=== PATIENT | male | born 1980 | race Caucasian/White ===

== ENCOUNTER 2016-08-04 14:27 | Inpatient (IN) | payer SELFPAY ==
[~2016-08-04] VITALS: Ht 177.8 cm; Wt 74.8 kg
[2016-08-04] MEDS ORDERED: ASPIRIN 325 MG TABLET PO ONE (16:30)
[2016-08-04] MEDS ORDERED: ENALAPRILAT INJ (1.25 MG/ML) 1.25 MG/ML VIAL IV PRN (16:30)
[2016-08-04 16:51] LABS: BASOPHILS # (AUTO) 0.1 /CMM (0.0-0.2); BASOPHILS % (AUTO) 0.6 % (0.0-2.0); EOSINOPHILS # (AUTO) 0.1 /CMM (0.0-0.7); HEMATOCRIT 49 % (39-51); HEMOGLOBIN 16.6 g/dL (13.5-17.5); LYMPHOCYTES # (AUTO) 1.6 /CMM (0.8-4.8); LYMPHOCYTES % (AUTO) 18.5 % (20.0-44.0); MEAN CORPUSCULAR HEMOGLOBIN 30 PG (26.0-33.0); MEAN CORPUSCULAR HGB CONC 34 g/dl (31.0-36.0); MEAN CORPUSCULAR VOLUME 89 fL (80-96); MONOCYTES # (AUTO) 0.7 /CMM (0.1-1.30); MONOCYTES % (AUTO) 7.8 % (2.0-12.0); NEUTROPHILS % (AUTO) 72.1 % (43.0-81.0); PLATELET COUNT (AUTO) 290 /CMM (150-450); RDW COEFFICIENT OF VARIATION 13.9 (11.5-15.0); RED BLOOD CELL COUNT(AUTO) 5.51 MIL/uL (4.5-6.0); WHITE BLOOD COUNT (AUTO) 8.5 K/uL (4.3-11.0)
[2016-08-04 17:02] LABS: CALCIUM, SERUM 9.4 mg/dL (8.5-10.1); CARBON DIOXIDE 25 mmol/L (21-32); CHLORIDE 101 mmol/L (98-107); CREATININE 1.3 mg/dL (0.6-1.3); GLUCOSE 121 mg/dL (74-106); POTASSIUM 3.9 mmol/L (3.5-5.1); SODIUM SERUM 138 mmol/L (136-145); UREA NITROGEN, BLOOD 13 mg/dL (7-18)
[2016-08-04] MEDS ORDERED: ASPIRIN 325 MG TABLET ONE (17:04)
[2016-08-04] MEDS ORDERED: ENALAPRILAT DIHYD. (2.5MG/ML) 1.25 MG/ML VIAL IV ONE (17:04)
[2016-08-04 17:06] LABS: INR 1.11 (0.87-1.13); PROTHROMBIN TIME 11.6 SECS (9.5-12.7)
[2016-08-04 17:09] LABS: TROPONIN I < 0.017 ng/mL (0.00-0.056)
[2016-08-04 17:14] LABS: ALANINE AMINOTRANSFERASE 30 U/L (12-78); ALBUMIN 4.2 g/dL (3.4-5.0); ALKALINE PHOSPHATASE 129 U/L (46-116); ASPARTATE AMINOTRANSFERASE 31 U/L (15-37); B-TYPE NATRIURETIC PEPTIDE 3927 PG/ML (0-125); BILIRUBIN,DIRECT 0.5 mg/dL (0.0-0.2); BILIRUBIN,TOTAL 1.7 mg/dL (0.2-1.0); TOTAL PROTEIN, SERUM 7.9 g/dL (6.4-8.2)
[2016-08-04] MEDS ORDERED: ASPI1TAB9 PO (17:22)
[2016-08-04] MEDS ORDERED: LABETALOL 20 MG/4 ML VIAL ONE (18:22)
[2016-08-04] MEDS: LABETALOL HCL IV 100MG VIAL IV PRN (18:26)
[2016-08-04 20:00] VITALS: BP 143/109
[2016-08-04] MEDS ORDERED: MAG HYDROX/AL HYDROX/SIMETH 30 ML UDC PO PRN (20:00)
[2016-08-04] MEDS ORDERED: ONDANSETRON HCL/PF 4 MG/2 ML VIAL IVP PRN (20:00)
[2016-08-04] MEDS ORDERED: Z GUARD REMEDY 2 OZ OINT TP PRN (20:00)
[2016-08-04] MEDS ORDERED: ZOLPIDEM TARTRATE 5 MG TABLET PO PRN (20:00)
[2016-08-04] MEDS ORDERED: ASPIRIN/ACETAMINOPHEN/CAFFEINE 1 EACH TABLET PO PRN (20:00)
[2016-08-04] MEDS ORDERED: MAGNESIUM HYDROXIDE 30 ML UDC PO PRN (20:00)
[2016-08-04] MEDS: ACETAMINOPHEN 325 MG TABLET PO PRN (20:15)
[2016-08-05] VITALS: BP 144/102
[2016-08-05] MEDS: HYDROCODONE/APAP 5/325MG 1 EACH TABLET PO PRN (00:43)
[2016-08-05 04:00] VITALS: BP 155/116
[2016-08-05 05:15] VITALS: BP 155/116
[2016-08-05 06:35] LABS: BASOPHILS % (AUTO) 0.7 % (0.0-2.0); EOSINOPHILS # (AUTO) 0.1 /CMM (0.0-0.7); EOSINOPHILS % (AUTO) 2.1 % (0.0-6.0); HEMATOCRIT 47 % (39-51); HEMOGLOBIN 15.9 g/dL (13.5-17.5); LYMPHOCYTES # (AUTO) 2.2 /CMM (0.8-4.8); MEAN CORPUSCULAR HEMOGLOBIN 30 PG (26.0-33.0); MEAN CORPUSCULAR HGB CONC 34 g/dl (31.0-36.0); MEAN CORPUSCULAR VOLUME 90 fL (80-96); MONOCYTES # (AUTO) 0.7 /CMM (0.1-1.30); MONOCYTES % (AUTO) 10.2 % (2.0-12.0); NEUTROPHILS # (AUTO) 3.6 /CMM (1.8-8.9); PLATELET COUNT (AUTO) 259 /CMM (150-450); RDW COEFFICIENT OF VARIATION 14.8 (11.5-15.0); RED BLOOD CELL COUNT(AUTO) 5.27 MIL/uL (4.5-6.0); WHITE BLOOD COUNT (AUTO) 6.6 K/uL (4.3-11.0)
[2016-08-05 07:15] LABS: CALCIUM, SERUM 9.1 mg/dL (8.5-10.1); MAGNESIUM 2.1 mg/dL (1.8-2.4); PHOSPHORUS 4.6 mg/dL (2.5-4.9); POTASSIUM 3.8 mmol/L (3.5-5.1)
[2016-08-05 07:54] LABS: EOSINOPHILS % (MANUAL) 2 % (0-4); LYMPHOCYTES % (MANUAL) 29 % (16-48); MONOCYTES % (MANUAL) 7 % (0-11.0); NEUTROPHILS % (MANUAL) 62 (42-76)
[2016-08-05 08:00] VITALS: BP 159/119
[2016-08-05] MEDS: PANTOPRAZOLE 40 MG TABLET.DR PO SCH (09:00)
[2016-08-05 12:00] VITALS: BP 164/24
[2016-08-05] MEDS ORDERED: AMLODIPINE BESYLATE 5 MG TABLET PO SCH (13:00)
[2016-08-05 14:13] LABS: TROPONIN I < 0.017 ng/mL (0.00-0.056)
[2016-08-05] MEDS: FUROSEMIDE 40 MG/4 ML VIAL IV SCH (16:44)
[2016-08-05] MEDS ORDERED: DEXTROSE 50%-WATER 50 ML DISP.SYRIN IV PRN (17:30)
[2016-08-05] MEDS ORDERED: *INSULIN REGULAR(HUMULIN R)HUM 100 UNIT/ML VIAL SQ PRN (17:30)
[2016-08-05] MEDS: BLOOD SUGAR DIAGNOSTIC 1 EACH STRIP VI SCH ×2 (18:03→22:16)
[2016-08-05] MEDS: ACETAMINOPHEN 325 MG TABLET PO PRN (18:14)
[2016-08-05] MEDS: AMLODIPINE BESYLATE 10 MG TABLET PO SCH (18:14)
[2016-08-06] MEDS: HYDROCODONE/APAP 5/325MG 1 EACH TABLET PO PRN ×2 (05:59→10:17)
[2016-08-06] MEDS: PANTOPRAZOLE 40 MG TABLET.DR PO SCH (07:04)
[2016-08-06] MEDS: BLOOD SUGAR DIAGNOSTIC 1 EACH STRIP VI SCH ×4 (07:05→22:07)
[2016-08-06 08:00] VITALS: BP 140/113
[2016-08-06] MEDS: FUROSEMIDE 40 MG/4 ML VIAL IV SCH ×2 (08:42→18:14)
[2016-08-06] MEDS: AMLODIPINE BESYLATE 10 MG TABLET PO SCH (08:42)
[2016-08-06 10:16] LABS: AFP, TUMOR MARKER 9.9 ng/mL (0.0-8.3)
[2016-08-06 12:00] VITALS: BP 168/115
[2016-08-06] MEDS: LABETALOL HCL IV 100MG VIAL IV PRN (12:58)
[2016-08-06] MEDS: ACETAMINOPHEN 325 MG TABLET PO PRN (18:15)
[2016-08-06 20:00] VITALS: BP 130/104
[2016-08-07] VITALS (12 sets, daily range): BP systolic 130–160; BP diastolic 89–108
[2016-08-07] MEDS: PANTOPRAZOLE 40 MG TABLET.DR PO SCH ×2 (06:59→21:46)
[2016-08-07] MEDS: BLOOD SUGAR DIAGNOSTIC 1 EACH STRIP VI SCH ×4 (06:59→21:39)
[2016-08-07] MEDS: FUROSEMIDE 40 MG/4 ML VIAL IV SCH (07:03)
[2016-08-07 07:31] LABS: BASOPHILS % (AUTO) 0.5 % (0.0-2.0); EOSINOPHILS # (AUTO) 0.2 /CMM (0.0-0.7); EOSINOPHILS % (AUTO) 2.2 % (0.0-6.0); HEMATOCRIT 54 % (39-51); HEMOGLOBIN 18.4 g/dL (13.5-17.5); LYMPHOCYTES # (AUTO) 1.4 /CMM (0.8-4.8); LYMPHOCYTES % (AUTO) 19.7 % (20.0-44.0); MEAN CORPUSCULAR HEMOGLOBIN 30 PG (26.0-33.0); MEAN CORPUSCULAR HGB CONC 34 g/dl (31.0-36.0); MEAN CORPUSCULAR VOLUME 88 fL (80-96); MONOCYTES # (AUTO) 0.7 /CMM (0.1-1.30); MONOCYTES % (AUTO) 9.8 % (2.0-12.0); NEUTROPHILS # (AUTO) 4.7 /CMM (1.8-8.9); NEUTROPHILS % (AUTO) 67.8 % (43.0-81.0); PLATELET COUNT (AUTO) 275 /CMM (150-450); RDW COEFFICIENT OF VARIATION 14.5 (11.5-15.0); RED BLOOD CELL COUNT(AUTO) 6.15 MIL/uL (4.5-6.0); WHITE BLOOD COUNT (AUTO) 6.9 K/uL (4.3-11.0)
[2016-08-07 07:57] LABS: BILIRUBIN,TOTAL 2.5 mg/dL (0.2-1.0); CALCIUM, SERUM 9.6 mg/dL (8.5-10.1); POTASSIUM 3.8 mmol/L (3.5-5.1); TOTAL PROTEIN, SERUM 8.2 g/dL (6.4-8.2)
[2016-08-07] MEDS ORDERED: HYDROCHLOROTHIAZIDE 25 MG TABLET PO SCH (09:00)
[2016-08-07] MEDS: AMLODIPINE BESYLATE 10 MG TABLET PO SCH (09:00)
[2016-08-07 09:19] LABS: BAND % (MANUAL) 1 % (0.0-5.0); EOSINOPHILS % (MANUAL) 1 % (0-4); LYMPHOCYTES % (MANUAL) 21 % (16-48); MONOCYTES % (MANUAL) 7 % (0-11.0); NEUTROPHILS % (MANUAL) 70 (42-76)
[2016-08-07] MEDS: INSULIN REGULAR, HUMAN 100 UNIT/ML 3 ML VIAL SQ PRN ×2 (12:37→17:30)
[2016-08-07] MEDS: FUROSEMIDE 40 MG TABLET PO SCH (17:28)
[2016-08-07] MEDS: ACETAMINOPHEN 325 MG TABLET PO PRN (17:58)
[2016-08-07] MEDS: CARVEDILOL 3.125 MG TABLET PO SCH (21:39)
[2016-08-08] VITALS: BP 142/103
[2016-08-08 04:48] VITALS: BP 149/103
[2016-08-08] MEDS: BLOOD SUGAR DIAGNOSTIC 1 EACH STRIP VI SCH (07:30)
[2016-08-08 07:36] LABS: POTASSIUM 3.6 mmol/L (3.5-5.1)
[2016-08-08 07:37] LABS: CALCIUM, SERUM 9.5 mg/dL (8.5-10.1); MAGNESIUM 2.1 mg/dL (1.8-2.4); PHOSPHORUS 4.2 mg/dL (2.5-4.9)
[2016-08-08 08:00] VITALS: BP 129/86
[2016-08-08] MEDS ORDERED: LISINOPRIL (5MG) 5 MG TABLET PO SCH (09:00)
[2016-08-08] MEDS: CARVEDILOL 3.125 MG TABLET PO SCH (10:05)
[2016-08-08] MEDS: AMLODIPINE BESYLATE 10 MG TABLET PO SCH (10:05)
[2016-08-08] MEDS: FUROSEMIDE 40 MG TABLET PO SCH (10:06)
[2016-08-08] MEDS: PANTOPRAZOLE 40 MG TABLET.DR PO SCH (10:06)
[2016-08-08 12:00] VITALS: BP 146/101
== END 2016-08-08 12:58 | disposition home or self-care (01) | DRG 304 ==
LOC: ER 14:31 → TELE1 18:01
PROVIDERS: ADMIT Family Medicine; ATTEND Family Medicine
DX: I16.0 Hypertensive urgency (principal); I50.23 Acute on chronic systolic (congestive) heart failure; I42.9 Cardiomyopathy, unspecified; R18.8 Other ascites; R74.0 Nonspecific elevation of levels of transaminase and lactic acid dehydrogenase [LDH]; F17.210 Nicotine dependence, cigarettes, uncomplicated; E11.9 Type 2 diabetes mellitus without complications; I11.0 Hypertensive heart disease with heart failure; K76.9 Liver disease, unspecified; R79.89 Other specified abnormal findings of blood chemistry; L53.8 Other specified erythematous conditions; Z87.898 Personal history of other specified conditions; R53.1 Weakness; F10.21 Alcohol dependence, in remission
CPT/HCPCS: 36415; 71010-TC; 76700-TC; 80048-TC; 80053-TC; 80061-TC; 80074; 80076-TC; 80305; 82105; 82962-TC; 83615-TC; 83735-TC; 83880; 84100-TC; 84484-TC; 85025-TC; 85652-TC; 85730-TC; 86140-TC; 87081-TC; 87340; 93307-TC; 94799-TC; 97001-TC; J1815; J1940; J3490

== ENCOUNTER 2022-06-19 19:54 | Inpatient (IN) | payer MEDICARE, OTHER ==
[~2022-06-19] VITALS: Ht 172.7 cm; Wt 66.2 kg
[~2022-06-19 19:54] MED LIST: ASPI1TAB9 PO
--- NOTE | 2022-06-19 20:05 | NUR ---
[id number] FROM HOME FOR SOB; CYANOTIC AND TRIPODING 80% ON EMS ARRIVAL PLACED ON CPAP HX OF PULMONARY HTN. PLACED ON BED, DYSNEIC RR-24, ON BIPAP SATURATING AT 97%.
--- NOTE | 2022-06-19 20:15 | NUR ---
CONTACTED NURSING SUP. FOR MIDLINE NURSE
--- NOTE | 2022-06-19 20:30 | NUR ---
DRY WALL NAILER AT BEDSIDE
--- NOTE | 2022-06-19 20:45 | NUR ---
FOOT SPECIALIST AT BEDSIDE
--- NOTE | 2022-06-19 20:48 | NUR ---
COVID AND MRSA SWAB DONE AND SENT TO LAB
--- NOTE | 2022-06-19 20:48 | NUR ---
XR AT BEDSIDE
[2022-06-19 21:06] LABS: BASOPHILS % (AUTO) 0.5 % (0.0-2.0); EOSINOPHILS % (AUTO) 0.8 % (0.0-6.0); HEMATOCRIT 46 % (39-51); HEMOGLOBIN 14.9 g/dL (13.5-17.5); LYMPHOCYTES # (AUTO) 1.3 K/uL (0.8-4.8); LYMPHOCYTES % (AUTO) 18.3 % (20.0-44.0); MEAN CORPUSCULAR HGB CONC 33 g/dl (31.0-36.0); MEAN CORPUSCULAR VOLUME 95 fL (80-96); MONOCYTES # (AUTO) 0.5 K/uL (0.1-1.30); MONOCYTES % (AUTO) 6.3 % (2.0-12.0); NEUTROPHILS # (AUTO) 5.4 K/uL (1.8-8.9); NEUTROPHILS % (AUTO) 74.1 % (43.0-81.0); PLATELET COUNT (AUTO) 232 K/uL (150-450); RED BLOOD CELL COUNT(AUTO) 4.82 MIL/uL (4.5-6.0); WHITE BLOOD COUNT (AUTO) 7.2 K/uL (4.3-11.0)
[2022-06-19 21:21] LABS: CALCIUM, SERUM 9.5 mg/dL (8.5-10.1); CARBON DIOXIDE 23 mmol/L (21-32); CHLORIDE 100 mmol/L (98-107); CREATININE 1.7 mg/dL (0.6-1.3); GLUCOSE 124 mg/dL (74-106); POTASSIUM 4.1 mmol/L (3.5-5.1); SODIUM SERUM 136 mmol/L (136-145); UREA NITROGEN, BLOOD 20 mg/dL (7-18)
[2022-06-19 21:34] LABS: ALANINE AMINOTRANSFERASE 44 U/L (12-78); ALBUMIN 4.1 g/dL (3.4-5.0); ALKALINE PHOSPHATASE 75 U/L (46-116); ASPARTATE AMINOTRANSFERASE 29 U/L (15-37); BILIRUBIN,DIRECT 0.2 mg/dL (0.0-0.2); BILIRUBIN,TOTAL 0.6 mg/dL (0.2-1.0); TOTAL PROTEIN, SERUM 7.2 g/dL (6.4-8.2)
--- NOTE | 2022-06-19 21:34 | NUR ---
REPORT RECEIVED FROM LAB, LACTIC ACID 3. AWARE
--- NOTE | 2022-06-19 21:50 | NUR ---
CALLED [facility], PAGED HOSPITALIST FOR ADMISSION
[2022-06-19] MEDS ORDERED: ASPIRIN 81 MG TAB.CHEW PO ONE (22:00)
[2022-06-19] MEDS ORDERED: FUROSEMIDE 40 MG/4 ML VIAL IV ONE (22:00)
[2022-06-19] MEDS ORDERED: NITROGLYCERIN PACKET 1 GM PACKET TD ONE (22:00)
[2022-06-19] MEDS ORDERED: NITROGLYCERIN PACKET 1 GM PACKET ONE (22:12)
[2022-06-19] MEDS ORDERED: ASPIRIN 81 MG TAB.CHEW ONE (22:12)
[2022-06-19] MEDS ORDERED: FUROSEMIDE 40 MG/4 ML VIAL ONE (22:12)
--- NOTE | 2022-06-19 22:20 | NUR ---
PATIENT TAKEN TO CT VIA KONG
--- NOTE | 2022-06-19 23:12 | NUR ---
RM 328-2
--- NOTE | 2022-06-19 23:18 | NUR ---
REPORT GIVEN TO ASHWNII RN ROOM 328-2 FOR SWETA
[2022-06-19] MEDS ORDERED: ASPIRIN/ACETAMINOPHEN/CAFFEINE 1 EACH TABLET PO PRN (23:30)
[2022-06-19] MEDS ORDERED: MAG HYDROX/AL HYDROX/SIMETH 30 ML UDC PO PRN (23:30)
[2022-06-19] MEDS ORDERED: MAGNESIUM HYDROXIDE 30 ML UDC PO PRN (23:30)
[2022-06-19] MEDS ORDERED: ZOLPIDEM TARTRATE 5 MG TABLET PO PRN (23:30)
[2022-06-19] MEDS ORDERED: Z GUARD REMEDY 4 OZ OINT TP PRN (23:30)
[2022-06-19] MEDS ORDERED: ONDANSETRON HCL/PF 4 MG/2 ML VIAL IVP PRN (23:30)
[2022-06-20] VITALS (7 sets, daily range): BP systolic 118–147; BP diastolic 74–103
--- NOTE | 2022-06-20 00:17 | NUR ---
[facility] [place]
--- NOTE | 2022-06-20 00:59 | NUR ---
ADMISSION NOTE PATIENT BROUGHTIN UNIT AT AROUND MIDNIGHT. ACCOMPANIED BY 2 ER PERSONNEL VIA [employer]. PATIENT IS A/OX4. NO S/S OF APPARENT DISTRESS IN 2LPM OF 02 VIA [place]. DENIES ANY PAIN. PATIENT READING SR WITH INVERTED T WAVE ON THE TELE MONITOR. PATIENT WISHES TO BE FULL CODE AT THIS TIME AND DENIES ANY ADVANCED DIRECTIVES. REPORTS SMOKING "POT" AND VAPING, EVERYDAY-- SMOKING EDUCATION DONE, PATIENT ACKNOWLEDGED. PATIENT REPORTS OCCASIONAL ALCOHOL DRINKING. NEW ID BAND ON PATIENT. BELONGINGS CHECKED AND SIGNED FOR. IV ACCESS ON RIGHT ARM INTACT AND PATENT. SKIN ASSESSMENT DONE, WITH MULTIPLE SCABS AND NO OPEN WOUNDS. PATIENT ORIENTED IN UNIT AND THE USE OF CALL LIGHT. SAFETY IN PLACE. V/S TAKEN AND CHARTED. WILL CONTINUE WITH PATIENT'S PLAN OF CARE AND WILL FOLLOW THROUGH DOCTOR'S ORDERS.
[2022-06-20] MEDS ORDERED: *INSULIN REGULAR(HUMULIN R)HUM 100 UNIT/ML VIAL SQ PRN (01:00)
[2022-06-20] MEDS ORDERED: DEXTROSE 50%-WATER 50 ML DISP.SYRIN IV PRN (01:00)
--- NOTE | 2022-06-20 01:08 | NUR ---
teddy rn notes Patient reports bringing "a box" of medications from home not with him upon admission in the unit. called ER to confirm. EMT personnel to bring up per ER, Antoinette.
[2022-06-20] MEDS ORDERED: DIGO125T PO (02:09)
[2022-06-20] MEDS ORDERED: SPIR25TA6 PO (02:09)
[2022-06-20] MEDS ORDERED: SELE1600 PO (02:09)
[2022-06-20] MEDS ORDERED: MACI10TA PO (02:09)
[2022-06-20] MEDS ORDERED: METF-440 PO (02:09)
[2022-06-20] MEDS ORDERED: METO50TA16 PO (02:09)
[2022-06-20] MEDS ORDERED: LORA-259 PO (02:09)
[2022-06-20] MEDS ORDERED: TADA5TAB2 PO (02:09)
[2022-06-20] MEDS ORDERED: IBUP200C5 PO (02:09)
[2022-06-20] MEDS ORDERED: ACET1TAB23 PO (02:09)
--- NOTE | 2022-06-20 02:32 | NUR ---
MED RECON DONE
[2022-06-20 06:23] LABS: BASOPHILS % (AUTO) 0.5 % (0.0-2.0); EOSINOPHILS % (AUTO) 1.5 % (0.0-6.0); HEMATOCRIT 46 % (39-51); HEMOGLOBIN 15.2 g/dL (13.5-17.5); LYMPHOCYTES # (AUTO) 1.5 K/uL (0.8-4.8); LYMPHOCYTES % (AUTO) 20.2 % (20.0-44.0); MEAN CORPUSCULAR HGB CONC 33 g/dl (31.0-36.0); MEAN CORPUSCULAR VOLUME 92 fL (80-96); MONOCYTES # (AUTO) 0.6 K/uL (0.1-1.30); MONOCYTES % (AUTO) 8.7 % (2.0-12.0); NEUTROPHILS # (AUTO) 5.1 K/uL (1.8-8.9); NEUTROPHILS % (AUTO) 69.1 % (43.0-81.0); PLATELET COUNT (AUTO) 226 K/uL (150-450); RED BLOOD CELL COUNT(AUTO) 4.97 MIL/uL (4.5-6.0); WHITE BLOOD COUNT (AUTO) 7.4 K/uL (4.3-11.0)
--- NOTE | 2022-06-20 06:35 | NUR ---
noc rn note- non-admin Patient's blood sugar 158 mg/dL this am. refused insulin because per patient he does not take insulin at home and he has his home meds Metformin that he takes twice daily. Med already reconciled, awaiting for doctor's orders. Insulin non-administered.
[2022-06-20 06:43] LABS: CALCIUM, SERUM 9.2 mg/dL (8.5-10.1); CREATININE 1.2 mg/dL (0.6-1.3); PHOSPHORUS 3.7 mg/dL (2.5-4.9); POTASSIUM 3.4 mmol/L (3.5-5.1)
[2022-06-20] MEDS: BLOOD SUGAR DIAGNOSTIC 1 EACH STRIP VI SCH ×4 (06:43→21:59)
[2022-06-20] MEDS: INSULIN REGULAR, HUMAN 100 UNIT/ML 3 ML VIAL SQ PRN ×2 (06:43→21:50)
--- NOTE | 2022-06-20 07:11 | NUR ---
noc rn note Patient's mom called, made aware of patient's situation. and visitation hour. all questions answered.
--- NOTE | 2022-06-20 07:13 | NUR ---
noc rn closing note Patient in bed, with eyes closed easy to arouse. no s/s of apparent distress on 2lpm of 02 via nc. denies pain. all needs attended. will endorse to morning shift rn for continuity of care.
--- NOTE | 2022-06-20 07:30 | NUR ---
OPENING NOTE PATIENT RECEIVED AWAKE, A/O X4 ON 2L NC, NO S/S OF RESPIRATORY DISTRESS OR SOB. IV ACCESS ON R UPPER ARM G#20 SL, INTACT AND PATENT, FLUSHING WELL. NO EDEMA PRESENT. CLEAR LUNG SOUNDS, HYPERACTIVE BOWEL SOUNDS, CAPILLARY REFILL <3. CONTINENT: USING URINAL. FALL AND SAFETY PRECAUTIONS IN PLACE: BED LOCKED AND AT THE LOWEST POSITION,BED ALARM ON, CALL LIGHT WITHIN REACH.
[2022-06-20] MEDS ORDERED: POTASSIUM CHLORIDE 20 MEQ TAB.PRT.SR PO SCH (09:00)
[2022-06-20] MEDS: ASPIRIN 81 MG TAB.CHEW PO SCH (09:20)
[2022-06-20] MEDS: PANTOPRAZOLE 40 MG TABLET.DR PO SCH (09:20)
[2022-06-20] MEDS: IPRATROPIUM NEB FS 0.5 MG/2.5 ML AMPUL.NEB NEB SCH ×3 (09:30→20:01)
[2022-06-20] MEDS: SPIRONOLACTONE 25 MG TABLET PO SCH (09:51)
[2022-06-20] MEDS: FUROSEMIDE 40 MG/4 ML VIAL IV SCH (09:53)
[2022-06-20] MEDS: methylPREDNISolone SOD SUCC 125 MG/2ML VIAL IV SCH (09:54)
[2022-06-20] MEDS ORDERED: IBUP-23 PO (10:32)
[2022-06-20 17:19] LABS: BILIRUBIN,URINE NEGATIVE (NEGATIVE); COLOR,URINE YELLOW (YELLOW); LEUKOCYTE ESTERASE ,URINE NEGATIVE (NEGATIVE); NITRITE, URINE NEGATIVE (NEGATIVE); PH,URINE 5.5 (5.0-8.0); PROTEIN,URINE NEGATIVE (NEGATIVE); UGLUCOSE NEGATIVE (NEGATIVE); UROBILINOGEN,URINE 0.2 EU/dL (0.2)
--- NOTE | 2022-06-20 17:40 | NUR ---
MEDICATION NOTE PATIENT REFUSED BG CHECK/ INSULIN, PATIENT WAS INFORMED OF IMPORTANCE OF REGIME OF CARE. PATIENT STATED HE IS TAKING METFORMIN AT HOME AND DOESN'T WANT INSULIN. EXPLAINED THAT METFORMIN WAS BEING HELD DUE TO MONITORING BUN AND CREATINE LEVELS. PATIENT STILL REFUSING.
--- NOTE | 2022-06-20 17:50 | NUR ---
RT Not aware of tx. Will begin next scheduled time
[2022-06-20] MEDS: SELEXIPAG PO SCH (18:00)
[2022-06-20] MEDS: TADALAFIL 20 MG PO SCH (18:00)
--- NOTE | 2022-06-20 19:30 | NUR ---
CLOSING NOTE PATIENT RESTING WITH VISIBLE CHEST EXTENSION, A/O X4 ON 2L NC, NO S/S OF RESPIRATORY DISTRESS OR SOB. IV ACCESS ON R UPPER ARM G#20 SL, INTACT AND PATENT, FLUSHING WELL. MEDICATION WERE ADMINISTERED SCHEDULED. CONTINENT: USING URINAL. END OF DAY OUTPUT: 2,050CC. FALL AND SAFETY PRECAUTIONS IN MAINTAINED: BED LOCKED AND AT THE LOWEST POSITION,BED ALARM ON, CALL LIGHT WITHIN REACH.
--- NOTE | 2022-06-20 19:34 | NUR ---
RN OPENING NOTE PATIENT ASLEEP IN BED. A/OX4. NO S/S OF DISTRESS, BREATHING WITHOUT DIFFICULTY ON 2L NC. TRIP #20 SL INTACT AND PATENT. TELE READS SR 78. SAFETY MEASURES IN PLACE: BED LOCKED AND AT LOWEST POSITION, RAILS UP X2, CALL SCOTT WITHIN REACH. WILL CONTINUE TO MONITOR PATIENT.
[2022-06-20] MEDS: ACETAMINOPHEN 325 MG TABLET PO PRN (20:51)
[2022-06-21] VITALS: BP 102/69
[2022-06-21] MEDS: IPRATROPIUM NEB FS 0.5 MG/2.5 ML AMPUL.NEB NEB SCH ×3 (00:57→12:39)
[2022-06-21 04:00] VITALS: BP 123/67
[2022-06-21 06:32] LABS: BASOPHILS % (AUTO) 0.5 % (0.0-2.0); EOSINOPHILS % (AUTO) 0.3 % (0.0-6.0); HEMATOCRIT 49 % (39-51); HEMOGLOBIN 16.3 g/dL (13.5-17.5); LYMPHOCYTES # (AUTO) 1.2 K/uL (0.8-4.8); LYMPHOCYTES % (AUTO) 11.4 % (20.0-44.0); MEAN CORPUSCULAR HGB CONC 33 g/dl (31.0-36.0); MEAN CORPUSCULAR VOLUME 94 fL (80-96); MONOCYTES # (AUTO) 0.9 K/uL (0.1-1.30); MONOCYTES % (AUTO) 8.5 % (2.0-12.0); NEUTROPHILS % (AUTO) 79.3 % (43.0-81.0); PLATELET COUNT (AUTO) 244 K/uL (150-450); RED BLOOD CELL COUNT(AUTO) 5.22 MIL/uL (4.5-6.0); WHITE BLOOD COUNT (AUTO) 10.1 K/uL (4.3-11.0)
[2022-06-21] MEDS: INSULIN REGULAR, HUMAN 100 UNIT/ML 3 ML VIAL SQ PRN (06:39)
[2022-06-21] MEDS: BLOOD SUGAR DIAGNOSTIC 1 EACH STRIP VI SCH ×2 (06:39→12:21)
--- NOTE | 2022-06-21 06:49 | NUR ---
RN CLOSING NOTE PATIENT AWAKE IN BED. A/OX4. NO S/S OF DISTRESS, BREATHING WITHOUT DIFFICULTY ON 2L NC. TRIP #20 SL INTACT AND PATENT. TELE READS SR 67 W/ ST DEPRESSION. SAFETY MEASURES IN PLACE: BED LOCKED AND AT LOWEST POSITION, RAILS UP X2, CALL SCOTT WITHIN REACH. WILL ENDORSE TO NEXT SHIFT FOR SWETA.
[2022-06-21 07:16] LABS: ALBUMIN 3.9 g/dL (3.4-5.0); BILIRUBIN,TOTAL 0.9 mg/dL (0.2-1.0); CALCIUM, SERUM 9.8 mg/dL (8.5-10.1); MAGNESIUM 2.2 mg/dL (1.8-2.4); PHOSPHORUS 4.8 mg/dL (2.5-4.9); POTASSIUM 3.9 mmol/L (3.5-5.1); TOTAL PROTEIN, SERUM 7.3 g/dL (6.4-8.2)
--- NOTE | 2022-06-21 07:59 | NUR ---
RN OPENING NOTE RECEIVED PATIENT AWAKE IN BED. A/OX4. NO S/S OF DISTRESS, BREATHING WITHOUT DIFFICULTY ON 2L NC. TRIP #20 SL INTACT AND PATENT. TELE READS SR 75. SAFETY MEASURES IN PLACE: BED LOCKED AND AT LOWEST POSITION, RAILS UP X2, CALL SCOTT WITHIN REACH. WILL CONTINUE TO MONITOR PATIENT.
[2022-06-21 08:16] VITALS: BP 115/80
[2022-06-21] MEDS: PANTOPRAZOLE 40 MG TABLET.DR PO SCH (08:24)
[2022-06-21] MEDS ORDERED: OPSUMIT 10 MG PO SCH (09:00)
[2022-06-21] MEDS ORDERED: DIGOXIN 0.125 MG TABLET PO ONE (09:00)
[2022-06-21] MEDS: methylPREDNISolone SOD SUCC 125 MG/2ML VIAL IV SCH (09:18)
[2022-06-21] MEDS: FUROSEMIDE 40 MG/4 ML VIAL IV SCH (09:19)
[2022-06-21] MEDS: SPIRONOLACTONE 25 MG TABLET PO SCH (09:19)
[2022-06-21] MEDS: ASPIRIN 81 MG TAB.CHEW PO SCH (09:23)
[2022-06-21] MEDS: TADALAFIL 20 MG PO SCH (09:23)
[2022-06-21] MEDS: SELEXIPAG PO SCH (09:23)
[2022-06-21] MEDS: ACETAMINOPHEN 325 MG TABLET PO PRN ×2 (09:45→15:54)
--- NOTE | 2022-06-21 10:05 | NUR ---
TECHNICIAN HELPER INSTRUMENT NOTE PATIENT CONSENTED FOR CT ANGIOGRAM. SECURED CONSENT.
[2022-06-21] MEDS ORDERED: NITROGLYCERIN 0.4 MG/TAB BOTTLE ONE (10:22)
[2022-06-21] MEDS ORDERED: IOHEXOL-350 100 ML VIAL IV ONE (10:22)
[2022-06-21] MEDS ORDERED: METOPROLOL TARTRATE INJ 5 MG/5 ML AMPUL ONE ×2 (10:22→11:12)
[2022-06-21] MEDS ORDERED: CT SWABBABLE VALVE TRANS SET 1 EA INFUS.SET MC ONE (10:23)
[2022-06-21] MEDS ORDERED: IV NS 0.9% 250 ML IV ONE (10:23)
[2022-06-21] MEDS: METOPROLOL TARTRATE INJ 5 MG/5 ML AMPUL IVP PRN ×4 (10:55→11:10)
[2022-06-21 16:04] VITALS: BP 115/67
--- NOTE | 2022-06-21 17:30 | NUR ---
VACUUM DRIER OPERATOR NOTES PATIENT DISCHARGED ORDERED. PATIENT SEND HE WILL WALK HOME HIS HOUSE WAS CLOSE TO [facility]. IV ACCESS REMOVED. REINFORCED HEALTH TEACHING. ALL HOME MEDS FROM THE PHARMACY WAS GIVEN BACK TO THE PATIENT. ALL BELONGINGS ENDORSED TO THE PATIENT. PATIENT LEFT THE UNIT AMBULATORY AND STABLE.
== END 2022-06-21 17:35 | disposition home or self-care (01) | DRG 291 ==
LOC: ER 19:56 → TELE 23:18
PROVIDERS: ADMIT Student in an Organized Health Care Education/Training Program
DX: I11.0 Hypertensive heart disease with heart failure (principal); I50.23 Acute on chronic systolic (congestive) heart failure; J96.01 Acute respiratory failure with hypoxia; N17.0 Acute kidney failure with tubular necrosis; E87.1 Hypo-osmolality and hyponatremia; R18.8 Other ascites; E11.9 Type 2 diabetes mellitus without complications; E87.6 Hypokalemia; I27.20 Pulmonary hypertension, unspecified; J44.9 Chronic obstructive pulmonary disease, unspecified; Z76.82 Awaiting organ transplant status; Z82.3 Family history of stroke; Z82.49 Family history of ischemic heart disease and other diseases of the circulatory system; Z91.148 Patient's other noncompliance with medication regimen for other reason; Z91.199 Patient's noncompliance with other medical treatment and regimen due to unspecified reason; Z80.9 Family history of malignant neoplasm, unspecified; K76.9 Liver disease, unspecified; F17.200 Nicotine dependence, unspecified, uncomplicated
CPT/HCPCS: 36415; 71045-TC; 71250-TC; 75574; 80048-TC; 80053-TC; 80076-TC; 82962-TC; 83605-TC; 83735-TC; 83880; 84100-TC; 84484-TC; 85025-TC; 85730-TC; 87040-TC; 87081-TC; 93307-TC; 93970-TC; 94799-TC; C9803; G0378; J1815; J1940; J2930; J3490; J7050; Q9967